=== PATIENT | male | born 1985 | race Caucasian/White ===

== ENCOUNTER 2016-11-25 16:47 | Emergency (ER) | payer OTHER ==
--- NOTE | 2016-11-25 18:33 | DIAGNOSTIC IMAGING REPORT ---
PROCEDURE: CT HEAD WITHOUT CONTRAST INDICATION: HEADACHE TECHNIQUE: Axial CT images were acquired through the head. Coronal and sagittal reformations were created. COMPARISON: None. FINDINGS: Slightly suboptimal study due to motion artifact through the posterior fossa. No intracranial hemorrhage or extraaxial fluid collections. Ventricles are normal in size, shape and position. There is no mass, mass effect or midline shift. The villegas-white matter differentiation is normal. There is no edema. The calvarium is intact. The paranasal sinuses and mastoid air cells are normally aerated. The extracranial soft tissues and orbits are normal. IMPRESSION: 1. Given motion artifact through the posterior fossa, no CT evidence of acute intracranial process. If symptoms continue, MRI is recommended. 2. Findings discussed with Dr. Orozco at [address] scans at this facility use dose modulation, iterative reconstruction, and/or weight-based dosing when appropriate to reduce radiation dose to as low as reasonably achievable.
--- NOTE | 2016-11-25 18:34 | DIAGNOSTIC IMAGING REPORT ---
PROCEDURE: CT CERVICAL SPINE W/O CONTRAST INDICATION: PAIN TECHNIQUE: Axial CT images were obtained through the cervical spine. Coronal and sagittal reformations were created. No comparison. COMPARISON: None. FINDINGS: The craniocervical junction is intact. The cervical vertebral bodies are normal in height without evidence of fracture. The alignment and disk spacing is normal. The central canal is patent. No spinal stenosis or neural foraminal narrowing. No prevertebral or paravertebral soft-tissue swelling or mass. Patent airway and normal lung apices. IMPRESSION: 1. Normal CT of the cervical spine without evidence of acute trauma. 2. Discussed with Dr. Orozco in the emergency room. All CT scans at this facility use dose modulation, iterative reconstruction, and/or weight-based dosing when appropriate to reduce radiation dose to as low as reasonably achievable.
--- NOTE | 2016-11-25 19:04 | ED ORDER SUMMARY ---
..... Patient: KASSI LOWERY OrderSheet [facility] VisitID: [id number] [place] [address] 31y, M Registration Date/Time: 11/25/2016 ORDER SHEET Weight: 77.1 kg (stated) Allergies: Neldacon GENERAL ORDERS: CT Head wo Cont Urgent (17:45 11/25/2016 Deejay GIRON) (Ack 17:49 IJurca ER Tech1) (18:01 RMarsden R.N.) CT Cervical Spine wo Cont Urgent (17:45 11/25/2016 Deejay GIRON) (Ack 17:49 IJurca ER Tech1) (18:01 RMarsden R.N.) MEDICATION ORDERS: Toradol IM 60 mg (NOW) (19:09 11/25/2016 Deejay GIRON) (Ack 19:10 JQuivey R.N.) (19:22 JQuivey R.N.) IV FLUIDS: ORDER SHEET NOTES: [Electronically signed by Kyrie Hadley R.N. (20:38 11/25/2016)] [Electronically signed by Ortega Orozco MD (15:21 11/29/2016)] [Electronically locked/signed by Kyrie Hadley R.N. (20:38 11/25/2016)]
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
--- NOTE | 2016-11-25 19:04 | ED ORDER SUMMARY ---
..... Patient: KASSI LOWERY OrderSheet [facility] VisitID: [id number] [place] [address] 31y, M Registration Date/Time: 11/25/2016 ORDER SHEET Weight: 77.1 kg (stated) Allergies: Neldacon GENERAL ORDERS: CT Head wo Cont Urgent (17:45 11/25/2016 Deejay GIRON) (Ack 17:49 IJurca ER Tech1) (18:01 RMarsden R.N.) CT Cervical Spine wo Cont Urgent (17:45 11/25/2016 Deejay GIRON) (Ack 17:49 IJurca ER Tech1) (18:01 RMarsden R.N.) MEDICATION ORDERS: Toradol IM 60 mg (NOW) (19:09 11/25/2016 Deejay GIRON) (Ack 19:10 JQuivey R.N.) (19:22 JQuivey R.N.) IV FLUIDS: ORDER SHEET NOTES: [Electronically signed by Kyrie Hadley R.N. (20:38 11/25/2016)] [Electronically signed by Ortega Orozco MD (15:21 11/29/2016)] [Electronically locked/signed by Kyrie Hadley R.N. (20:38 11/25/2016)]
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
--- NOTE | 2016-11-29 15:22 | ED MAR SUMMARY ---
..... Medication Administration Record Merged With [facility] [address] [place] [address] Patient: KASSI LOWERY Visit ID: [id number] 31y, M Weight: 77.1 kg Height/Length: 69 in BMI: 25.1 ALLERGIES: Neldacon Given 19:22 11/25/2016 Kyrie Hadley R.N. Medication Administered: TORADOL [IM] (KETOROLAC TROMETHAMINE), Dose: 60 mg IM. Medication Ordered: Toradol IM 60 mg (NOW).
--- NOTE | 2016-11-29 15:22 | ED MAR SUMMARY ---
..... Medication Administration Record [facility] [address] [place] [address] Patient: KASSI LOWERY Visit ID: [id number] 31y, M Weight: 77.1 kg Height/Length: 69 in BMI: 25.1 ALLERGIES: Neldacon Given 19:22 11/25/2016 Kyrie Hadley R.N. Medication Administered: TORADOL [IM] (KETOROLAC TROMETHAMINE), Dose: 60 mg IM. Medication Ordered: Toradol IM 60 mg (NOW).
--- NOTE | 2016-11-29 15:22 | ED MED RECONCILIATION SUMMARY ---
Patient: KASSI LOWERY Medication Reconciliation Report [facility] VisitID: [id number] [place] [address] 31y, M Registration Date/Time: 11/25/2016 Weight: 77.1 kg Height/Length: 69 in. BMI: 25.1 ALLERGIES: Neldacon The patient's Home Medications are listed below: NONE. The source(s) of the original Home Medication information: Not obtained. The following Medications were given to the patient in the Emergency Department: Toradol [IM] IM 60 mg, administered: 11/25/2016 7:22:00 PM The following Medications were prescribed to the patient: Hydrocodone/APAP 5mg/325mg: take 1 to 2 orally every 6 hours as needed for pain. Dispense fifteen (15). No refills. -- Ortega Orozco MD Ibuprofen 600mg tablets: take 1 tablet orally every 8 hours as needed for pain. Dispense thirty (30). No refills. -- Ortega Orozco MD Flexeril 5 mg: take 1 orally every 8 hours as needed for pain. Dispense fifteen (15). No refills. Substitution is permissible. -- Ortega Orozco MD
--- NOTE | 2016-11-29 15:22 | ED DISCHARGE INSTRUCTIONS ---
Patient: KASSI LOWERY General Instructions [facility] VisitID: [id number] [place] [address] 31y, M Registration Date/Time: 11/25/2016 Left occipital-parietal headache. INSTRUCTIONS Apply moist heat for 15-20 minutes three times a day for one weeks until better. No strenuous activity. Warnings: Further evaluation is necessary. GENERAL WARNINGS: Return or contact your physician immediately if your condition worsens or changes unexpectedly, if not improving as expected, or if other problems arise. Prescription Medications: Hydrocodone/APAP 5mg/325mg: take 1 to 2 orally every 6 hours as needed for pain. Dispense fifteen (15). No refills. Ibuprofen 600mg tablets: take 1 tablet orally every 8 hours as needed for pain. Dispense thirty (30). No refills. Flexeril 5 mg: take 1 orally every 8 hours as needed for pain. Dispense fifteen (15). No refills. Substitution is permissible. Follow-up: Follow up with your doctor in five days. Call for the next available appointment. Understanding of the discharge instructions verbalized by patient. ADDITIONAL INFORMATION Cyclobenzaprine Hydrochloride Oral tablet What is this medicine? CYCLOBENZAPRINE (jus brennan) is a muscle relaxer. It is used to treat muscle pain, spasms, and stiffness. How should I use this medicine? Take this medicine by mouth with a glass of water. Follow the directions on the prescription label. If this medicine upsets your stomach, take it with food or milk. Take your medicine at regular intervals. Do not take it more often than directed. Talk to your meat and poultry inspector regarding the use of this medicine in children. Special care may be needed. What side effects may I notice from receiving this medicine? Side effects that you should report to your doctor or health senior care manager as soon as possible: allergic reactions like skin rash, itching or hives, swelling of the face, lips, or tongue chest pain fast heartbeat hallucinations seizures vomiting Side effects that usually do not require medical attention (report to your doctor or health senior care manager if they continue or are bothersome): headache What may interact with this medicine? Do not take this medicine with any of the following medications: cisapride droperidol flecainide grepafloxacin halofantrine levomethadyl MAOIs like Carbex, Eldepryl, Marplan, Nardil, and Parnate nilotinib pimozide probucol sertindole This medicine may also interact with the following medications: abarelix alcohol contrast dyes dolasetron guanethidine medicines for cancer medicines for depression, anxiety, or psychotic disturbances medicines to treat an irregular heartbeat medicines used for sleep or numbness during surgery or procedure methadone octreotide ondansetron palonosetron phenothiazines like chlorpromazine, mesoridazine, prochlorperazine, thioridazine some medicines for infection like alfuzosin, chloroquine, clarithromycin, levofloxacin, mefloquine, pentamidine, troleandomycin tramadol vardenafil What if I miss a dose? If you miss a dose, take it as soon as you can. If it is almost time for your next dose, take only that dose. Do not take double or extra doses. Where should I keep my medicine? Keep out of the reach of children. Store at room temperature between 15 and 30 degrees C (59 and 86 degrees F). Keep container tightly closed. Throw away any unused medicine after the expiration date. What should I tell my health care provider before I take this medicine? They need to know if you have any of these conditions: heart disease, irregular heartbeat, or previous heart attack liver disease thyroid problem an unusual or allergic reaction to cyclobenzaprine, tricyclic antidepressants, lactose, other medicines, foods, dyes, or preservatives or trying to get breast-feeding What should I watch for while using this medicine? Check with your doctor or health senior care manager if your condition does not improve within 1 to 3 weeks. You may get drowsy or dizzy when you first start taking the medicine or change doses. Do not drive, use machinery, or do anything that may be dangerous until you know how the medicine affects you. Stand or sit up slowly. Your mouth may get dry. Drinking water, chewing sugarless gum, or sucking on hard candy may help. You have been given the following additional information: Cyclobenzaprine Hydrochloride Oral tablet No strenuous activity. (Electronically signed by Ortega Orozco MD 11/29/2016 15:21)
--- NOTE | 2016-11-29 15:22 | ED DISCHARGE INSTRUCTIONS ---
Patient: KASSI LOWERY General Instructions [facility] VisitID: [id number] [place] [address] 31y, M Registration Date/Time: 11/25/2016 Left occipital-parietal headache. INSTRUCTIONS Apply moist heat for 15-20 minutes three times a day for one weeks until better. No strenuous activity. Warnings: Further evaluation is necessary. GENERAL WARNINGS: Return or contact your physician immediately if your condition worsens or changes unexpectedly, if not improving as expected, or if other problems arise. Prescription Medications: Hydrocodone/APAP 5mg/325mg: take 1 to 2 orally every 6 hours as needed for pain. Dispense fifteen (15). No refills. Ibuprofen 600mg tablets: take 1 tablet orally every 8 hours as needed for pain. Dispense thirty (30). No refills. Flexeril 5 mg: take 1 orally every 8 hours as needed for pain. Dispense fifteen (15). No refills. Substitution is permissible. Follow-up: Follow up with your doctor in five days. Call for the next available appointment. Understanding of the discharge instructions verbalized by patient. ADDITIONAL INFORMATION Cyclobenzaprine Hydrochloride Oral tablet What is this medicine? CYCLOBENZAPRINE (jus brennan) is a muscle relaxer. It is used to treat muscle pain, spasms, and stiffness. How should I use this medicine? Take this medicine by mouth with a glass of water. Follow the directions on the prescription label. If this medicine upsets your stomach, take it with food or milk. Take your medicine at regular intervals. Do not take it more often than directed. Talk to your corporate strategy intern regarding the use of this medicine in children. Special care may be needed. What side effects may I notice from receiving this medicine? Side effects that you should report to your doctor or health patient care technician instructor as soon as possible: allergic reactions like skin rash, itching or hives, swelling of the face, lips, or tongue chest pain fast heartbeat hallucinations seizures vomiting Side effects that usually do not require medical attention (report to your doctor or health patient care technician instructor if they continue or are bothersome): headache What may interact with this medicine? Do not take this medicine with any of the following medications: cisapride droperidol flecainide grepafloxacin halofantrine levomethadyl MAOIs like Carbex, Eldepryl, Marplan, Nardil, and Parnate nilotinib pimozide probucol sertindole This medicine may also interact with the following medications: abarelix alcohol contrast dyes dolasetron guanethidine medicines for cancer medicines for depression, anxiety, or psychotic disturbances medicines to treat an irregular heartbeat medicines used for sleep or numbness during surgery or procedure methadone octreotide ondansetron palonosetron phenothiazines like chlorpromazine, mesoridazine, prochlorperazine, thioridazine some medicines for infection like alfuzosin, chloroquine, clarithromycin, levofloxacin, mefloquine, pentamidine, troleandomycin tramadol vardenafil What if I miss a dose? If you miss a dose, take it as soon as you can. If it is almost time for your next dose, take only that dose. Do not take double or extra doses. Where should I keep my medicine? Keep out of the reach of children. Store at room temperature between 15 and 30 degrees C (59 and 86 degrees F). Keep container tightly closed. Throw away any unused medicine after the expiration date. What should I tell my health care provider before I take this medicine? They need to know if you have any of these conditions: heart disease, irregular heartbeat, or previous heart attack liver disease thyroid problem an unusual or allergic reaction to cyclobenzaprine, tricyclic antidepressants, lactose, other medicines, foods, dyes, or preservatives or trying to get breast-feeding What should I watch for while using this medicine? Check with your doctor or health patient care technician instructor if your condition does not improve within 1 to 3 weeks. You may get drowsy or dizzy when you first start taking the medicine or change doses. Do not drive, use machinery, or do anything that may be dangerous until you know how the medicine affects you. Stand or sit up slowly. Your mouth may get dry. Drinking water, chewing sugarless gum, or sucking on hard candy may help. You have been given the following additional information: Cyclobenzaprine Hydrochloride Oral tablet No strenuous activity. (Electronically signed by Ortega Orozco MD 11/29/2016 15:21)
--- NOTE | 2016-11-29 15:22 | ED MED RECONCILIATION SUMMARY ---
Patient: KASSI LOWERY Medication Reconciliation Report [facility] VisitID: [id number] [place] [address] 31y, M Registration Date/Time: 11/25/2016 Weight: 77.1 kg Height/Length: 69 in. BMI: 25.1 ALLERGIES: [place] The patient's Home Medications are listed below: NONE. The source(s) of the original Home Medication information: Not obtained. The following Medications were given to the patient in the Emergency Department: Toradol [IM] IM 60 mg, administered: 11/25/2016 7:22:00 PM The following Medications were prescribed to the patient: Hydrocodone/APAP 5mg/325mg: take 1 to 2 orally every 6 hours as needed for pain. Dispense fifteen (15). No refills. -- Ortega Orozco MD Ibuprofen 600mg tablets: take 1 tablet orally every 8 hours as needed for pain. Dispense thirty (30). No refills. -- Ortega Orozco MD Flexeril 5 mg: take 1 orally every 8 hours as needed for pain. Dispense fifteen (15). No refills. Substitution is permissible. -- Ortega Orozco MD
== END 2016-11-25 19:40 | disposition home or self-care (01) ==
LOC: ED SRH 16:47
DX: R51 Headache (principal); Z88.8 Allergy status to other drugs, medicaments and biological substances